=== PATIENT | male | born 1945 | race Caucasian/White ===

== ENCOUNTER 2019-05-02 21:04 | Emergency (ER) | payer MEDICARE, OTHER | END 2019-05-02 21:28 | disposition home or self-care (01) | LOC: BURERS 21:04 | DX: H61.21 Impacted cerumen, right ear (principal); K21.9 Gastro-esophageal reflux disease without esophagitis | CPT/HCPCS: 69209 ==

== ENCOUNTER 2020-06-05 18:59 | Emergency (ER) | payer MEDICARE ==
[2020-06-05] MEDS ORDERED: AMOXicillin 250 MG CAP ONE (19:17)
== END 2020-06-05 19:20 | disposition home or self-care (01) ==
LOC: BURERS 18:59
DX: H65.91 Unspecified nonsuppurative otitis media, right ear (principal); K21.9 Gastro-esophageal reflux disease without esophagitis; N40.0 Benign prostatic hyperplasia without lower urinary tract symptoms
CPT/HCPCS: 99282

== ENCOUNTER 2023-01-12 14:18 | Emergency (ER) | payer MEDICARE ==
[2023-01-12] MEDS ORDERED: NEOMYCIN-POLYMYXIN-HC EAR SUSP 200 DROP/10 ML BOT ONE (15:10)
== END 2023-01-12 15:15 | disposition home or self-care (01) ==
LOC: BURERS 14:18
DX: H61.23 Impacted cerumen, bilateral (principal); K21.9 Gastro-esophageal reflux disease without esophagitis
CPT/HCPCS: 69210